=== PATIENT | female | born 1955 | race Caucasian/White ===

== ENCOUNTER 2024-08-24 07:02 | Inpatient (IN) | payer OTHER ==
[2024-08-24] VITALS (10 sets, daily range): BP systolic 104–146; BP diastolic 47–76; PULSE 55–80; RESP 16–20; TEMP 97.8–98.3; O2SAT 90–95
[~2024-08-24] VITALS: Ht 149.9 cm; Wt 69.9 kg
[~2024-08-24 07:02] MED LIST: ALBU108A5 IN; ALLO100T PO; CHOL20007 PO; DIAZ-681 PO; DICY20TA PO; DIPH2.5T73 PO; FIBE1CHW PO; HYDR25TA5 PO; LATA0.008 EACHEYE; LORA-483 PO; METF-370 PO; PANT40T PO; POM; POM EACHNOSTRI; POM LEFTEYE; POM PO; TELM80TA PO; ZOFR4T PO
[2024-08-24] MEDS: fentaNYL CITRATE 100 MCG/2 ML VL ONE ×2 (12:00→12:51)
[2024-08-24] MEDS: HEPARIN IN NS 1000Units/500mL 0 ML ONE (12:00)
[2024-08-24] MEDS: LIDOCAINE 2%HCL (LOCAL ANESTH.) INJ 10ml MDV ONE (12:01)
[2024-08-24] MEDS: HEPARIN IN NS 1000Units/500mL 1,500 ML ONE (12:01)
[2024-08-24] MEDS: MIDAZOLAM HCL 2MG/2ML 2ml VIAL (1mg/ml) ONE ×2 (12:01→12:52)
[2024-08-24] MEDS: LIDOCAINE 2%HCL (LOCAL ANESTH.) INJ 20ML MDV ONE (12:08)
[2024-08-24] MEDS: IODIXANOL 320MG/ML 100ML BTL IV ONE (12:45)
[2024-08-24] MEDS: HEPARIN SODIUM (PORCINE) 5000 UNITS/ML 1ML VIAL ONE (12:51)
--- NOTE | 2024-08-24 14:06 | DVHOP ---
DATE OF SURGERY: 08/24/2024 PROCEDURE PERFORMED: Pacemaker implantation. This is a micro procedure. This is a septal implant via the right femoral vein. INDICATION: Sick sinus syndrome with tachybrady events, presyncope, dizziness and lightheadedness. DESCRIPTION OF PROCEDURE: Prior local anesthesia with 2% lidocaine to the right groin and conscious sedation given and administered by the nurse and supervised by me throughout the entirety of the procedure, the patient was prepped and draped in the usual fashion and placement of a 23-Setswana sheath was placed ultimately into the femoral vein by predilating with 8, 9, 12 and 16-Setswana dilators. We then placed a micro introducer into the right ventricle and under fluoroscopic guidance, we deployed the micro device in the right side of the interventricular septum. There were no complications. Adequate capture and sensitivity thresholds were obtained. The measured data in the right ventricle at 3.9 R-wave with the pacing impedance of 720 ohms. Pacing threshold at 0.5 volts and 0.24 milliseconds. The pacing parameters are in the RV at pulse amplitude of 2.5, paced sensitivity of 2 and a pulse width of 0.24. The device was programmed to VDD mode. The device placed is by [employer] [id number], serial #[id number]. This was implanted into the RV septum. The patient then had adequate capture and sensitivity. Once the device was deployed, the introducer sheath was removed and a flow stasis device was used to seal the vein. The patient tolerated the procedure well. There were no complications. A chest x-ray was ordered. MD RIK Sousa/HENRY/HANNAH TID: [id number] RECEIPT: [id number]
[2024-08-24] MEDS: ONDANSETRON HCL 4 MG/2 ML VIAL ONE (14:40)
[2024-08-24] MEDS: ONDANSETRON HCL 4 MG/2 ML VIAL IV PRN (14:40)
--- NOTE | 2024-08-24 14:55 | DVH ---
CHEST RADIOGRAPH Indication: S/P PACEMAKER Technique: Single frontal view of the chest was obtained Comparison: None FINDINGS: Lines and Tubes: None Lungs: No focal consolidation. Pleura: No effusion. No pneumothorax. Cardiomediastinal contours: Unremarkable Bones: No acute osseous abnormality. IMPRESSION: No acute cardiopulmonary disease.
[2024-08-24] MEDS: HYDROcodone-ACET 5/325MG TAB PO PRN (15:40)
--- NOTE | 2024-08-24 15:48 | DVHHP2 ---
History of Present Illness Reason for Visit: Elective permanent pacemaker implantation History of Present Illness 68-year-old female with a known history of hypertension, borderline diabetes mellitus type 2, sick sinus syndrome who was brought in by Cardiology for permanent pacemaker implantation. Patient underwent permanent pacemaker implantation. Patient currently tried any chest pain shortness of breath. Patient denies any chest pain palpitations but complaining of right groin pain at the angiogram site. Cardiovascular: HTN, hyperipidemia Endocrine: Diabetes Past Surgical History: Appendectomy, Cholecystectomy, Other (Multiple rotator cuff surgeries.) Family History: None Smoke: No ALCOHOL: none Review of Systems Review of Systems Twelve review of systems are negative besides mentioned above. Allergies: Coded Allergies: Atorvastatin (Verified Allergy, Unknown, ABDOMINAL PAIN, 08/22/24) Sulfa Antibiotics (Verified Allergy, Unknown, RASH, 08/22/24) Medications Current Medications Medications Dose Ordered Sig/Hammad Route Start Time Stop Time Status Last Admin Dose Admin Flecainide Acetate 50 mg Q12HR PO 08/24/24 22:00 Ondansetron HCl 4 mg Q6HPRN PRN IV 08/24/24 14:45 Acetaminophen/ Hydrocodone Bitart 1 tab Q6HPRN PRN PO 08/24/24 15:15 Exam Exam HEENT pupils are reactive Neck is supple CVS S1-S2 regular rate and rhythm Respiratory bilateral clear GI positive bowel sounds Extremity no edema 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 1. Sick sinus syndrome status post permanent pacemaker implantation 2. Hypertension 3. Diabetes mellitus type 2 -continue pain meds as needed, follow up Cardiology recommendation, discharge plan Plan discussed with: Patient Date of Service: Aug 24, 2024 Billing Provider: JUAN AVILA MD Common Visit Codes: NOT BILLABLE JUAN AVILA MD Aug 24, 2024 15:48
[2024-08-24] MEDS: HYDROcodone-ACET 5/325MG TAB ONE (15:56)
[2024-08-24] MEDS: FLECAINIDE ACETATE 50 MG TAB PO SCH (22:00)
[2024-08-24] MEDS: MELATONIN 5 MG TAB PO ONE (22:19)
[2024-08-24] MEDS: MELATONIN 5 MG TAB ONE (22:34)
[2024-08-25] VITALS (7 sets, daily range): BP systolic 128–157; BP diastolic 51–74; PULSE 53–73; RESP 18–20; TEMP 97.5–98.1; O2SAT 83–97
[2024-08-25] MEDS ORDERED: TELM1TAB37 PO (10:06)
--- NOTE | 2024-08-25 10:24 | ECG ---
[facility] Test Date: 2024-08-24 Test Time: 14:49:49 Pat Name: CAMRON CRESPO Department: Room: 0248T A Gender: F Cabin Man: VIKI : 1955 Requested By: K[place] Order Number: [id number] Reading MD: [place] Measurements Intervals Reading Rate: 58 P: 72 PA: 0 QRS: -51 QRSD: 154 T: 30 QT: 482 QTc: 473 Interpretive Statements Electronic ventricular pacemaker Electronically Signed On 08-27-2024 15:58:03 PST by [place] Louis Please click the below link to view image of tracing.
[2024-08-25] MEDS ORDERED: FLE50T PO (15:54)
[2024-08-25] MEDS ORDERED: METO25TA93 PO (15:54)
[2024-08-25] MEDS ORDERED: DOXY100C79 PO (16:07)
[2024-08-25] MEDS ORDERED: HYDR-4902 PO (16:07)
--- NOTE | 2024-08-25 16:09 | DVHDS2 ---
Discharge Summary Date of Admission Aug 24, 2024 at 13:18 Date of Discharge: Aug 25, 2024 Labs/Diagnostic Data: Laboratory Results Test 08/24/24 15:37 POC Glucose 157 mg/dl (70-106) Brief Hx & Hospital Course: 68-year-old female with a known history of hypertension, borderline diabetes mellitus type 2, sick sinus syndrome who was brought in by Cardiology for lactose permanent pacemaker implantation. Patient was successfully placed permanent pacemaker implantation. Patient was currently denies any complaints. Requesting to have some [place] for home. I will give p.o. antibiotics has been. Dr. Louis who cleared the patient to be discharged on flecainide and beta- rivera. Condition at Discharge: Stable Final Diagnosis/Problems List 68-year-old female with a known history of hypertension, borderline diabetes mellitus type 2, sick sinus syndrome who was brought in by Cardiology for lactose permanent pacemaker implantation. 1. Sick sinus syndrome status post permanent pacemaker implantation 2. Hypertension 3. Diabetes mellitus type 2 Discharge Disposition: Home with [facility] Discharge Will this Physician continue t: No Discharge Instruct/Medications Diet: Cardiac 2g Na,low cholest Activity: See Comment Activity comment: No driving, no signing of legal documents, no planning on heavy machinery while on narcotics. Follow Up/Referral: With the PCP in 1-2 weeks Medications: As reconciled Discharge Statement: "Patient was advised to return to the ER or call 911 if any headaches, dizziness, shortness of breath, chest pain, abdominal pain, bleeding, fevers, or worsening of medical condition. Patient was counseled about treatment plan, medications, possible side effects, patientverbalized understanding. All questions were answered to the best of my ability. This discharge took greater then 30 minutes in planning, reviewing documentation, counseling the patient, and discussing with other team members." ASSESSMENT ASSESSMENT Assessment 68-year-old female with a known history of hypertension, borderline diabetes mellitus type 2, sick sinus syndrome who was brought in by Cardiology for lactose permanent pacemaker implantation. 1. Sick sinus syndrome status post permanent pacemaker implantation 2. Hypertension 3. Diabetes mellitus type 2 Date of Service: Aug 25, 2024 Billing Provider: JUAN AVILA MD Common Visit Codes: NOT BILLABLE JUAN AVILA MD Aug 25, 2024 16:09
[2024-08-25] MEDS: INFLUENZA TRIVALENT 2024-2025 0.5 ML INJ IM ONE (16:56)
== END 2024-08-25 18:00 | disposition home or self-care (01) | DRG 229 ==
LOC: CATH 07:02 → OVERFLOW 13:18 → TELE-EAST 16:42
PROVIDERS: ADMIT Internal Medicine; ATTEND Internal Medicine
PROC: 02HK3NZ Insertion of Intracardiac Pacemaker into Right Ventricle, Percutaneous Approach (ICD-10-PCS; principal; 2024-08-24)
DX: I49.5 Sick sinus syndrome (principal); Z00.6 Encounter for examination for normal comparison and control in clinical research program; I10 Essential (primary) hypertension; E11.9 Type 2 diabetes mellitus without complications; E78.5 Hyperlipidemia, unspecified; Z90.49 Acquired absence of other specified parts of digestive tract; Z88.2 Allergy status to sulfonamides; Z88.8 Allergy status to other drugs, medicaments and biological substances; Z79.899 Other long term (current) drug therapy; Z79.1 Long term (current) use of non-steroidal anti-inflammatories (NSAID); Z79.891 Long term (current) use of opiate analgesic
CPT/HCPCS: 33274; 71045; 82962; 90656; 93005; 99152; G0378; J2003; J2250; J2405; Q9967